=== PATIENT | female | born 1995 | race Caucasian/White ===

== ENCOUNTER 2020-09-23 06:28 | Day surgery (SDC) | payer OTHER ==
[2020-09-22 16:31] VITALS: BMI 18.5
[2020-09-23 09:20] VITALS: TEMP 98.6
[2020-09-23 10:18] VITALS: BP 114/74; PULSE 89
== END 2020-09-23 10:20 | disposition home or self-care (01) ==
LOC: FECT 06:28
PROVIDERS: ATTEND Psychiatry & Neurology Psychiatry
PROC: GZB4ZZZ Other Electroconvulsive Therapy (ICD-10-PCS; principal; 2020-09-23 08:00)
DX: F32.9 Major depressive disorder, single episode, unspecified (principal)
CPT/HCPCS: 81025; 90870; 94760; C9803; U0003

== ENCOUNTER 2020-09-26 08:07 | Day surgery (SDC) | payer OTHER ==
[2020-09-26 11:07] VITALS: TEMP 98.1
[2020-09-26 11:32] VITALS: BP 112/77; PULSE 89
== END 2020-09-26 11:45 | disposition home or self-care (01) ==
LOC: FECT 08:07
PROVIDERS: ATTEND Psychiatry & Neurology Psychiatry
PROC: GZB4ZZZ Other Electroconvulsive Therapy (ICD-10-PCS; principal; 2020-09-26 11:30)
DX: F32.9 Major depressive disorder, single episode, unspecified (principal)
CPT/HCPCS: 90870; 94760; C9803; U0003

== ENCOUNTER 2020-09-29 06:23 | Day surgery (SDC) | payer OTHER ==
[2020-09-23 10:51] VITALS: BMI 18.5
[2020-09-29 10:49] VITALS: TEMP 98.2
[2020-09-29 11:04] VITALS: BP 100/63; PULSE 87
== END 2020-09-29 11:00 | disposition home or self-care (01) ==
LOC: FECT 06:23
PROVIDERS: ATTEND Psychiatry & Neurology Psychiatry
PROC: GZB4ZZZ Other Electroconvulsive Therapy (ICD-10-PCS; principal; 2020-09-29 08:30)
DX: F32.9 Major depressive disorder, single episode, unspecified (principal)
CPT/HCPCS: 81025; 90870; 94760

== ENCOUNTER 2020-09-30 06:18 | Day surgery (SDC) | payer OTHER ==
[2020-09-30 07:11] VITALS: BMI 18.5
[2020-09-30] MEDS ORDERED: SUCCINYLCHOLINE CHLORIDE 200 MG/10 ML SYRINGE ONE (08:09)
[2020-09-30] MEDS ORDERED: ONDANSETRON 4 MG/2 ML VIAL ONE (08:09)
[2020-09-30] MEDS ORDERED: LIDOCAINE HCL/PF 2% SDV 5ML VIAL ONE (08:09)
[2020-09-30] MEDS ORDERED: PROPOFOL 20 ML ONE (08:09)
[2020-09-30 08:51] VITALS: TEMP 97.8
[2020-09-30 10:54] VITALS: BP 101/66
[2020-09-30 10:55] VITALS: PULSE 90
[2020-09-30] MEDS ORDERED: ONDANSETRON 4 MG/2 ML VIAL IVPUSH PRN (11:04)
== END 2020-09-30 09:40 | disposition home or self-care (01) ==
LOC: FECT 06:18
PROVIDERS: ATTEND Psychiatry & Neurology Psychiatry
PROC: GZB4ZZZ Other Electroconvulsive Therapy (ICD-10-PCS; principal; 2020-09-30 09:00)
DX: F32.9 Major depressive disorder, single episode, unspecified (principal)
CPT/HCPCS: 90870; 94760; C9803; U0003

== ENCOUNTER 2020-10-03 06:18 | Day surgery (SDC) | payer OTHER ==
[2020-09-30 10:55] VITALS: BMI 18.5
[2020-10-03] MEDS ORDERED: PROPOFOL 20 ML ONE (08:26)
[2020-10-03] MEDS ORDERED: SUCCINYLCHOLINE CHLORIDE 200 MG/10 ML SYRINGE ONE (08:27)
[2020-10-03 09:54] VITALS: TEMP 98.2
[2020-10-03 10:11] VITALS: BP 102/70; PULSE 86
== END 2020-10-03 09:45 | disposition home or self-care (01) ==
LOC: FECT 06:18
PROVIDERS: ATTEND Psychiatry & Neurology Psychiatry
PROC: GZB4ZZZ Other Electroconvulsive Therapy (ICD-10-PCS; principal; 2020-10-03 08:30)
DX: F32.9 Major depressive disorder, single episode, unspecified (principal)
CPT/HCPCS: 81025; 90870; 94760; C9803; U0003

== ENCOUNTER 2020-10-06 06:04 | Day surgery (SDC) | payer OTHER ==
[2020-10-04 16:49] VITALS: BMI 18.5
[2020-10-06] MEDS ORDERED: KETAMINE HCL 500 MG/10 ML VIAL ONE (07:51)
[2020-10-06 09:43] VITALS: TEMP 97.8
[2020-10-06] MEDS ORDERED: ACETAMINOPHEN 325 MG TABLET (FP) ONE (09:46)
[2020-10-06] MEDS ORDERED: ONDANSETRON *ODT* 4 MG TABLET ONE (10:25)
[2020-10-06 12:20] VITALS: BP 123/79; PULSE 88
== END 2020-10-06 11:15 | disposition home or self-care (01) ==
LOC: FECT 06:04
PROVIDERS: ATTEND Psychiatry & Neurology Psychiatry
PROC: GZB4ZZZ Other Electroconvulsive Therapy (ICD-10-PCS; principal; 2020-10-06 08:00)
DX: F32.9 Major depressive disorder, single episode, unspecified (principal)
CPT/HCPCS: 90870; 94760; Q0162

== ENCOUNTER 2020-10-10 08:37 | Day surgery (SDC) | payer OTHER ==
[2020-10-05 15:30] VITALS: BMI 18.5
[2020-10-10 11:45] VITALS: TEMP 98.2
[2020-10-10 12:33] VITALS: BP 121/69; PULSE 88
== END 2020-10-10 12:15 | disposition home or self-care (01) ==
LOC: FECT 08:37
PROVIDERS: ATTEND Psychiatry & Neurology Psychiatry
PROC: GZB4ZZZ Other Electroconvulsive Therapy (ICD-10-PCS; principal; 2020-10-10 10:30)
DX: F32.9 Major depressive disorder, single episode, unspecified (principal)
CPT/HCPCS: 84703; 90870; 94760; C9803; U0003

== ENCOUNTER → 2020-10-13 | Day surgery (SDC) | payer OTHER ==
[2020-10-11 08:17] VITALS: BMI 18.5
[~2020-10-13] MED LIST: KETAMINE HCL 500 MG/10 ML VIAL ONE; LIDOCAINE HCL 2% 100 MG/5 ML DISP.SYRIN ONE
[2020-10-13 08:40] VITALS: TEMP 98.6
[2020-10-13 09:19] VITALS: BP 107/70; PULSE 98
== END | disposition home or self-care (01) ==
LOC: FECT 05:54
PROVIDERS: ATTEND Psychiatry & Neurology Psychiatry
PROC: GZB4ZZZ Other Electroconvulsive Therapy (ICD-10-PCS; principal; 2020-10-13 07:30)
DX: F32.9 Major depressive disorder, single episode, unspecified (principal)
CPT/HCPCS: 90870; 94760

== ENCOUNTER 2020-10-14 05:49 | Day surgery (SDC) | payer OTHER ==
[2020-10-11 08:22] VITALS: BMI 18.5
[2020-10-14 08:29] VITALS: TEMP 98.2
[2020-10-14 08:45] VITALS: BP 108/70; PULSE 90
== END 2020-10-14 08:50 | disposition home or self-care (01) ==
LOC: FECT 05:49
PROVIDERS: ATTEND Psychiatry & Neurology Psychiatry
PROC: GZB4ZZZ Other Electroconvulsive Therapy (ICD-10-PCS; principal; 2020-10-14 07:30)
DX: F32.9 Major depressive disorder, single episode, unspecified (principal)
CPT/HCPCS: 81025; 90870; 94760; C9803; U0003

== ENCOUNTER 2020-10-17 05:40 | Day surgery (SDC) | payer OTHER ==
[2020-10-11 16:31] VITALS: BMI 18.5
[2020-10-17] MEDS ORDERED: LIDOCAINE HCL/PF 2% SDV 5ML VIAL ONE (07:18)
[2020-10-17] MEDS ORDERED: SUCCINYLCHOLINE CHLORIDE 200 MG/10 ML SYRINGE ONE (07:18)
[2020-10-17] MEDS ORDERED: PROPOFOL 20 ML ONE (07:18)
[2020-10-17] MEDS ORDERED: DEXAMETHASONE SOD PHOSPHATE 4 MG/1 ML VIAL ONE (07:20)
[2020-10-17] MEDS ORDERED: ONDANSETRON 4 MG/2 ML VIAL ONE (07:20)
[2020-10-17] MEDS ORDERED: KETOROLAC TROMETHAMINE 30 MG/1 ML VIAL ONE (07:20)
[2020-10-17 08:13] VITALS: TEMP 98
[2020-10-17 08:45] VITALS: BP 108/67; PULSE 79
[2020-10-17] MEDS ORDERED: ACETAMINOPHEN 325 MG TABLET (FP) PO PRN (10:15)
[2020-10-17] MEDS ORDERED: LACTATED RINGERS SOLUTION 1,000 ML IV SCH (10:15)
[2020-10-17] MEDS ORDERED: PROMETHAZINE HCL 25 MG/1 ML VIAL IVPUSH PRN (10:15)
== END 2020-10-17 08:47 | disposition home or self-care (01) ==
LOC: FECT 05:40
PROVIDERS: ATTEND Psychiatry & Neurology Psychiatry
PROC: GZB4ZZZ Other Electroconvulsive Therapy (ICD-10-PCS; principal; 2020-10-17 07:30)
DX: F32.9 Major depressive disorder, single episode, unspecified (principal)
CPT/HCPCS: 90870; 94760

== ENCOUNTER 2020-10-20 05:52 | Day surgery (SDC) | payer OTHER ==
[2020-10-13 09:28] VITALS: BMI 18.5
[2020-10-20 07:07] VITALS: TEMP 98.4
[2020-10-20] MEDS ORDERED: SUCCINYLCHOLINE CHLORIDE 200 MG/10 ML SYRINGE ONE (08:11)
[2020-10-20 09:21] VITALS: BP 109/69; PULSE 94
== END 2020-10-20 09:25 | disposition home or self-care (01) ==
LOC: FECT 05:52
PROVIDERS: ATTEND Psychiatry & Neurology Psychiatry
PROC: GZB4ZZZ Other Electroconvulsive Therapy (ICD-10-PCS; principal; 2020-10-20 08:00)
DX: F32.9 Major depressive disorder, single episode, unspecified (principal)
CPT/HCPCS: 81025; 90870; 94760

== ENCOUNTER 2020-10-21 06:05 | Day surgery (SDC) | payer OTHER ==
[2020-10-13 12:34] VITALS: BMI 18.5
[2020-10-21] MEDS ORDERED: DEXAMETHASONE SOD PHOSPHATE 4 MG/1 ML VIAL ONE (07:35)
[2020-10-21 08:45] VITALS: PULSE 89; TEMP 98.1
[2020-10-21 08:46] VITALS: BP 110/77
== END 2020-10-21 08:55 | disposition home or self-care (01) ==
LOC: FECT 06:05
PROVIDERS: ATTEND Psychiatry & Neurology Psychiatry
PROC: GZB4ZZZ Other Electroconvulsive Therapy (ICD-10-PCS; principal; 2020-10-21 08:00)
DX: F32.9 Major depressive disorder, single episode, unspecified (principal)
CPT/HCPCS: 90870; 94760

== ENCOUNTER 2020-10-24 05:59 | Day surgery (SDC) | payer OTHER ==
[2020-10-24 07:23] VITALS: BMI 18.5
[2020-10-24 09:37] VITALS: TEMP 98.4
[2020-10-24 11:29] VITALS: BP 122/79; PULSE 105
== END 2020-10-24 10:50 | disposition home or self-care (01) ==
LOC: FECT 05:59
PROVIDERS: ATTEND Psychiatry & Neurology Psychiatry
PROC: GZB4ZZZ Other Electroconvulsive Therapy (ICD-10-PCS; principal; 2020-10-24 07:30)
DX: F32.9 Major depressive disorder, single episode, unspecified (principal)
CPT/HCPCS: 81025; 90870; 94760

== ENCOUNTER 2020-10-31 06:48 | Day surgery (SDC) | payer OTHER ==
[2020-10-31 07:29] VITALS: TEMP 98; BMI 18.5
[2020-10-31] MEDS ORDERED: DEXAMETHASONE SOD PHOSPHATE 4 MG/1 ML VIAL ONE (08:35)
[2020-10-31] MEDS ORDERED: PROPOFOL 20 ML ONE (08:35)
[2020-10-31] MEDS ORDERED: ONDANSETRON 4 MG/2 ML VIAL ONE (08:35)
[2020-10-31] MEDS ORDERED: SUCCINYLCHOLINE CHLORIDE 200 MG/10 ML SYRINGE ONE (08:35)
[2020-10-31] MEDS ORDERED: KETOROLAC TROMETHAMINE 30 MG/1 ML VIAL ONE (08:35)
[2020-10-31] MEDS ORDERED: ONDANSETRON 4 MG/2 ML VIAL IVPUSH PRN (08:48)
[2020-10-31] MEDS ORDERED: LACTATED RINGERS SOLUTION 1,000 ML IV SCH (09:00)
[2020-10-31 10:19] VITALS: BP 115/75; PULSE 96
== END 2020-10-31 10:10 | disposition home or self-care (01) ==
LOC: FECT 06:48
PROVIDERS: ATTEND Psychiatry & Neurology Psychiatry
PROC: GZB4ZZZ Other Electroconvulsive Therapy (ICD-10-PCS; principal; 2020-10-31 09:00)
DX: F32.9 Major depressive disorder, single episode, unspecified (principal)
CPT/HCPCS: 81025; 90870; 94760

== ENCOUNTER 2020-11-07 05:43 | Day surgery (SDC) | payer OTHER ==
[2020-11-02 13:59] VITALS: BMI 18.5
[2020-11-07] MEDS ORDERED: PROPOFOL 20 ML ONE (07:17)
[2020-11-07] MEDS ORDERED: SUCCINYLCHOLINE CHLORIDE 200 MG/10 ML SYRINGE ONE (07:17)
[2020-11-07 07:46] VITALS: TEMP 98.9
[2020-11-07 08:50] VITALS: BP 100/61; PULSE 87
== END 2020-11-07 08:35 | disposition home or self-care (01) ==
LOC: FECT 05:43
PROVIDERS: ATTEND Psychiatry & Neurology Psychiatry
PROC: GZB4ZZZ Other Electroconvulsive Therapy (ICD-10-PCS; principal; 2020-11-07 07:30)
DX: F32.9 Major depressive disorder, single episode, unspecified (principal)
CPT/HCPCS: 81025; 90870; 94760

== ENCOUNTER 2020-11-14 06:45 | Day surgery (SDC) | payer OTHER ==
[2020-11-14 07:33] VITALS: BMI 19.7
[2020-11-14 09:14] VITALS: TEMP 98.2
[2020-11-14 09:57] VITALS: BP 107/61; PULSE 89
== END 2020-11-14 10:00 | disposition home or self-care (01) ==
LOC: FECT 06:45
PROVIDERS: ATTEND Psychiatry & Neurology Psychiatry
PROC: GZB4ZZZ Other Electroconvulsive Therapy (ICD-10-PCS; principal; 2020-11-14 09:30)
DX: F32.9 Major depressive disorder, single episode, unspecified (principal)
CPT/HCPCS: 81025; 90870; 94760

== ENCOUNTER 2020-11-21 08:04 | Day surgery (SDC) | payer OTHER ==
[2020-11-21 09:10] VITALS: BMI 19.9
[2020-11-21] MEDS ORDERED: ONDANSETRON 4 MG/2 ML VIAL ONE (09:51)
[2020-11-21] MEDS ORDERED: KETOROLAC TROMETHAMINE 30 MG/1 ML VIAL ONE (09:51)
[2020-11-21 10:58] VITALS: TEMP 98.2
[2020-11-21 11:07] VITALS: BP 105/66; PULSE 88
== END 2020-11-21 11:15 | disposition home or self-care (01) ==
LOC: FECT 08:04
PROVIDERS: ATTEND Psychiatry & Neurology Psychiatry
PROC: GZB4ZZZ Other Electroconvulsive Therapy (ICD-10-PCS; principal; 2020-11-21 10:30)
DX: F32.9 Major depressive disorder, single episode, unspecified (principal)
CPT/HCPCS: 84703; 90870; 94760

== ENCOUNTER 2020-12-01 05:55 | Day surgery (SDC) | payer OTHER ==
[2020-12-01 07:02] VITALS: BMI 19.9
[2020-12-01 08:33] VITALS: TEMP 98
[2020-12-01 09:13] VITALS: BP 108/66; PULSE 96
[2020-12-02 07:07] LABS: SARS-CoV-2 NAA Not Detected (Not Detected)
== END 2020-12-01 09:30 | disposition home or self-care (01) ==
LOC: FECT 05:55
PROVIDERS: ATTEND Psychiatry & Neurology Psychiatry
PROC: GZB4ZZZ Other Electroconvulsive Therapy (ICD-10-PCS; principal; 2020-12-01 08:30)
DX: F32.9 Major depressive disorder, single episode, unspecified (principal)
CPT/HCPCS: 81025; 90870; 94760; C9803; U0003; U0005

== ENCOUNTER 2020-12-05 06:11 | Day surgery (SDC) | payer OTHER ==
[2020-12-01 12:48] VITALS: BMI 19.9
[2020-12-05 09:51] VITALS: TEMP 97.6
[2020-12-05 10:07] VITALS: BP 100/61; PULSE 81
[2020-12-06 07:07] LABS: SARS-CoV-2 NAA Not Detected (Not Detected)
== END 2020-12-05 10:10 | disposition home or self-care (01) ==
LOC: FECT 06:11
PROVIDERS: ATTEND Psychiatry & Neurology Psychiatry
PROC: GZB4ZZZ Other Electroconvulsive Therapy (ICD-10-PCS; principal; 2020-12-05 10:30)
DX: F32.9 Major depressive disorder, single episode, unspecified (principal)
CPT/HCPCS: 81025; 90870; 94760; C9803; U0003; U0005

== ENCOUNTER 2020-12-08 06:10 | Day surgery (SDC) | payer OTHER ==
[2020-12-01 12:52] VITALS: BMI 19.9
[2020-12-08] MEDS ORDERED: KETOROLAC TROMETHAMINE 30 MG/1 ML VIAL ONE (07:56)
[2020-12-08 08:32] VITALS: TEMP 98.7
[2020-12-08 09:16] VITALS: BP 114/74; PULSE 89
== END 2020-12-08 09:15 | disposition home or self-care (01) ==
LOC: FECT 06:10
PROVIDERS: ATTEND Psychiatry & Neurology Psychiatry
PROC: GZB4ZZZ Other Electroconvulsive Therapy (ICD-10-PCS; principal; 2020-12-08 07:45)
DX: F32.9 Major depressive disorder, single episode, unspecified (principal)
CPT/HCPCS: 90870; 94760

== ENCOUNTER 2020-12-22 08:38 | Day surgery (SDC) | payer OTHER ==
[2020-12-22 09:23] VITALS: BMI 19.9
[2020-12-22] MEDS ORDERED: SUCCINYLCHOLINE CHLORIDE 200 MG/10 ML SYRINGE ONE (11:22)
[2020-12-22] MEDS ORDERED: PROPOFOL 20 ML ONE (11:22)
[2020-12-22 13:01] VITALS: TEMP 98.4
[2020-12-22 13:02] VITALS: BP 119/65; PULSE 83
[2020-12-23 11:08] LABS: SARS-CoV-2 NAA Not Detected (Not Detected)
== END 2020-12-22 13:00 | disposition home or self-care (01) ==
LOC: FECT 08:38
PROVIDERS: ATTEND Psychiatry & Neurology Psychiatry
PROC: GZB4ZZZ Other Electroconvulsive Therapy (ICD-10-PCS; principal; 2020-12-22 09:30)
DX: F33.2 Major depressive disorder, recurrent severe without psychotic features (principal)
CPT/HCPCS: 81025; 90870; 94760; C9803; U0003; U0005

== ENCOUNTER 2020-12-26 05:56 | Day surgery (SDC) | payer OTHER ==
[2020-12-26 06:55] VITALS: BMI 19.9
[2020-12-26 08:47] VITALS: PULSE 89; TEMP 98.2
[2020-12-26 09:29] VITALS: BP 112/69
[2020-12-27 12:07] LABS: SARS-CoV-2 NAA Not Detected (Not Detected)
== END 2020-12-26 09:05 | disposition home or self-care (01) ==
LOC: FECT 05:56
PROVIDERS: ATTEND Psychiatry & Neurology Psychiatry
PROC: GZB4ZZZ Other Electroconvulsive Therapy (ICD-10-PCS; principal; 2020-12-26 07:00)
DX: F32.9 Major depressive disorder, single episode, unspecified (principal)
CPT/HCPCS: 81025; 90870; 94760; C9803; U0003; U0005

== ENCOUNTER 2020-12-29 08:05 | Day surgery (SDC) | payer OTHER ==
[2020-12-29 08:25] VITALS: BMI 21.2
[2020-12-29] MEDS ORDERED: PROPOFOL 20 ML ONE (09:32)
[2020-12-29] MEDS ORDERED: DEXAMETHASONE SOD PHOSPHATE 4 MG/1 ML VIAL ONE (09:33)
[2020-12-29] MEDS ORDERED: KETOROLAC TROMETHAMINE 30 MG/1 ML VIAL ONE (09:33)
[2020-12-29] MEDS ORDERED: ONDANSETRON 4 MG/2 ML VIAL ONE (09:33)
[2020-12-29] MEDS ORDERED: SUCCINYLCHOLINE CHLORIDE 200 MG/10 ML SYRINGE ONE (09:33)
[2020-12-29 11:12] VITALS: BP 110/65; PULSE 88; TEMP 98
[2020-12-29] MEDS ORDERED: ONDANSETRON 4 MG/2 ML VIAL IVPUSH PRN (11:57)
[2020-12-29] MEDS ORDERED: LACTATED RINGERS SOLUTION 1,000 ML IV SCH (12:00)
[2020-12-30 15:08] LABS: SARS-CoV-2 NAA Not Detected (Not Detected)
== END 2020-12-29 10:55 | disposition home or self-care (01) ==
LOC: FECT 08:05
PROVIDERS: ATTEND Psychiatry & Neurology Psychiatry
PROC: GZB4ZZZ Other Electroconvulsive Therapy (ICD-10-PCS; principal; 2020-12-29 10:00)
DX: F32.9 Major depressive disorder, single episode, unspecified (principal)
CPT/HCPCS: 90870; 94760; C9803; U0003; U0005

== ENCOUNTER 2021-01-02 09:40 | Day surgery (SDC) | payer OTHER ==
[2020-12-30 15:02] VITALS: BMI 21.2
[2021-01-02] MEDS ORDERED: PROPOFOL 20 ML ONE (12:51)
[2021-01-02] MEDS ORDERED: ONDANSETRON 4 MG/2 ML VIAL ONE (12:51)
[2021-01-02] MEDS ORDERED: SUCCINYLCHOLINE CHLORIDE 200 MG/10 ML SYRINGE ONE (12:51)
[2021-01-02] MEDS ORDERED: KETOROLAC TROMETHAMINE 30 MG/1 ML VIAL ONE (12:51)
[2021-01-02] MEDS ORDERED: DEXAMETHASONE SOD PHOSPHATE 4 MG/1 ML VIAL ONE (12:51)
[2021-01-02 13:46] VITALS: PULSE 72; TEMP 97.9
[2021-01-02 14:09] VITALS: BP 102/64
== END 2021-01-02 14:13 | disposition home or self-care (01) ==
LOC: FECT 09:40
PROVIDERS: ATTEND Psychiatry & Neurology Psychiatry
PROC: GZB4ZZZ Other Electroconvulsive Therapy (ICD-10-PCS; principal; 2021-01-02 12:30)
DX: F32.9 Major depressive disorder, single episode, unspecified (principal)
CPT/HCPCS: 84703; 90870; 94760

== ENCOUNTER 2021-01-05 06:04 | Day surgery (SDC) | payer OTHER ==
[2021-01-02 17:29] VITALS: BMI 21.2
[2021-01-05 08:25] VITALS: TEMP 98.6
[2021-01-05 09:16] VITALS: BP 125/71; PULSE 89
== END 2021-01-05 09:10 | disposition home or self-care (01) ==
LOC: FECT 06:04
PROVIDERS: ATTEND Psychiatry & Neurology Psychiatry
PROC: GZB4ZZZ Other Electroconvulsive Therapy (ICD-10-PCS; principal; 2021-01-05 08:00)
DX: F33.2 Major depressive disorder, recurrent severe without psychotic features (principal)
CPT/HCPCS: 90870; 94760

== ENCOUNTER 2021-01-09 08:53 | Day surgery (SDC) | payer OTHER ==
[2021-01-06 10:14] VITALS: BMI 21.2
[2021-01-09 09:11] VITALS: TEMP 98
[2021-01-09] MEDS ORDERED: PROPOFOL 20 ML ONE ×5 (11:09)
[2021-01-09 12:19] VITALS: BP 121/71; PULSE 99
== END 2021-01-09 12:15 | disposition home or self-care (01) ==
LOC: FECT 08:53
PROVIDERS: ATTEND Psychiatry & Neurology Psychiatry
PROC: GZB4ZZZ Other Electroconvulsive Therapy (ICD-10-PCS; principal; 2021-01-09 11:00)
DX: F33.2 Major depressive disorder, recurrent severe without psychotic features (principal)
CPT/HCPCS: 84703; 90870; 94760

== ENCOUNTER 2021-01-12 05:56 | Day surgery (SDC) | payer OTHER ==
[2021-01-11 10:37] VITALS: BMI 21.2
[2021-01-12] MEDS ORDERED: SUCCINYLCHOLINE CHLORIDE 200 MG/10 ML SYRINGE ONE (07:21)
[2021-01-12] MEDS ORDERED: PROPOFOL 20 ML ONE (07:21)
[2021-01-12] MEDS ORDERED: LACTATED RINGERS SOLUTION 1,000 ML IV SCH (07:45)
[2021-01-12 08:52] VITALS: BP 112/70; PULSE 85; TEMP 98.2
== END 2021-01-12 08:40 | disposition home or self-care (01) ==
LOC: FECT 05:56
PROVIDERS: ATTEND Psychiatry & Neurology Psychiatry
PROC: GZB4ZZZ Other Electroconvulsive Therapy (ICD-10-PCS; principal; 2021-01-12 08:00)
DX: F33.2 Major depressive disorder, recurrent severe without psychotic features (principal)
CPT/HCPCS: 90870; 94760

== ENCOUNTER 2021-01-16 06:03 | Day surgery (SDC) | payer OTHER ==
[2021-01-11 15:02] VITALS: BMI 21.2
[2021-01-16 08:39] VITALS: TEMP 98.2
[2021-01-16 08:55] VITALS: BP 116/82; PULSE 90
== END 2021-01-16 09:00 | disposition home or self-care (01) ==
LOC: FECT 06:03
PROVIDERS: ATTEND Psychiatry & Neurology Psychiatry
PROC: GZB4ZZZ Other Electroconvulsive Therapy (ICD-10-PCS; principal; 2021-01-16 07:30)
DX: F33.2 Major depressive disorder, recurrent severe without psychotic features (principal)
CPT/HCPCS: 81025; 90870; 94760

== ENCOUNTER 2021-01-24 07:47 | Day surgery (SDC) | payer OTHER ==
[2021-01-24 09:08] VITALS: BMI 21.2
[2021-01-24 11:07] VITALS: TEMP 98.2
[2021-01-24 11:11] VITALS: BP 111/77; PULSE 89
== END 2021-01-24 11:05 | disposition home or self-care (01) ==
LOC: FECT 07:47
PROVIDERS: ATTEND Psychiatry & Neurology Psychiatry
PROC: GZB4ZZZ Other Electroconvulsive Therapy (ICD-10-PCS; principal; 2021-01-24 09:30)
DX: F32.9 Major depressive disorder, single episode, unspecified (principal)
CPT/HCPCS: 84703; 90870; 94760

== ENCOUNTER 2021-02-02 05:53 | Day surgery (SDC) | payer OTHER ==
[2021-01-26 11:17] VITALS: BMI 21.2
[2021-02-02] MEDS ORDERED: PROPOFOL 20 ML ONE (07:45)
[2021-02-02 09:01] VITALS: TEMP 98.4
[2021-02-02 09:26] VITALS: BP 112/70; PULSE 84
== END 2021-02-02 09:25 | disposition home or self-care (01) ==
LOC: FECT 05:53
PROVIDERS: ATTEND Psychiatry & Neurology Psychiatry
PROC: GZB4ZZZ Other Electroconvulsive Therapy (ICD-10-PCS; principal; 2021-02-02 08:00)
DX: F32.9 Major depressive disorder, single episode, unspecified (principal)
CPT/HCPCS: 81025; 90870; 94760

== ENCOUNTER 2021-02-06 06:07 | Day surgery (SDC) | payer OTHER ==
[2021-02-03 09:02] VITALS: BMI 21.2
[2021-02-06 09:19] VITALS: TEMP 98.4
[2021-02-06 09:39] VITALS: BP 112/71; PULSE 89
== END 2021-02-06 09:40 | disposition home or self-care (01) ==
LOC: FECT 06:07
PROVIDERS: ATTEND Psychiatry & Neurology Psychiatry
PROC: GZB4ZZZ Other Electroconvulsive Therapy (ICD-10-PCS; principal; 2021-02-06 08:30)
DX: F32.9 Major depressive disorder, single episode, unspecified (principal)
CPT/HCPCS: 81025; 90870; 94760

== ENCOUNTER 2021-02-09 06:07 | Day surgery (SDC) | payer OTHER ==
[2021-02-03 11:27] VITALS: BMI 21.2
[2021-02-09 08:20] VITALS: TEMP 97
[2021-02-09 08:34] VITALS: PULSE 94
[2021-02-09 09:01] VITALS: BP 105/75
[2021-02-09 09:26] LABS: BASO % 1.8 % (0-2.0); EOS % 1.2 % (0-4.5); HEMATOCRIT 37.4 % (32.4-45.2); MCHC 34.7 g/dl (32.0-36.0); MEAN CELL VOLUME 86.3 fl (80-96); MEAN PLT VOLUME 9.7 fl (7.5-11.1); MONO % 6.1 % (3.8-10.2); NEUT % 70.9 % (42.8-82.8); PLATELET COUNT 181 10^3/uL (134-434); RBC 4.33 M/mm3 (3.60-5.2); WHITE BLOOD COUNT 4.9 K/mm3 (4.0-10.8)
[2021-02-09 09:42] LABS: ALBUMIN 3.8 g/dl (3.4-5.0); BILIRUBIN,TOTAL 0.6 mg/dl (0.2-1); CALCIUM 8.9 mg/dl (8.5-10); CREATININE 0.5 mg/dl (0.55-1.3); MAGNESIUM 1.7 mg/dL (1.8-2.4); TOT PROT 6.4 g/dl (6.4-8.2)
== END 2021-02-09 09:10 | disposition home or self-care (01) ==
LOC: FECT 06:07
PROVIDERS: ATTEND Psychiatry & Neurology Psychiatry
PROC: GZB4ZZZ Other Electroconvulsive Therapy (ICD-10-PCS; principal; 2021-02-09 08:00)
DX: F32.9 Major depressive disorder, single episode, unspecified (principal)
CPT/HCPCS: 36415; 80053; 83735; 85025; 90870; 94760

== ENCOUNTER 2021-02-13 08:04 | Day surgery (SDC) | payer OTHER ==
[2021-02-07 08:33] VITALS: BMI 21.2
[2021-02-13 13:28] VITALS: TEMP 98.6
[2021-02-13 13:50] VITALS: BP 121/70; PULSE 90
== END 2021-02-13 13:50 | disposition home or self-care (01) ==
LOC: FECT 08:04
PROVIDERS: ATTEND Psychiatry & Neurology Psychiatry
PROC: GZB4ZZZ Other Electroconvulsive Therapy (ICD-10-PCS; principal; 2021-02-13 10:30)
DX: F32.9 Major depressive disorder, single episode, unspecified (principal)
CPT/HCPCS: 84703; 90870; 94760

== ENCOUNTER 2021-02-16 06:15 | Day surgery (SDC) | payer OTHER ==
[2021-02-07 08:37] VITALS: BMI 21.2
[2021-02-16 08:29] VITALS: TEMP 98.6
[2021-02-16 09:16] VITALS: BP 112/80; PULSE 94
[2021-02-16] MEDS ORDERED: ACETAMINOPHEN 325 MG TABLET (FP) PO PRN (11:24)
[2021-02-16] MEDS ORDERED: LACTATED RINGERS SOLUTION 1,000 ML IV SCH (11:30)
== END 2021-02-16 09:15 | disposition home or self-care (01) ==
LOC: FECT 06:15
PROVIDERS: ATTEND Psychiatry & Neurology Psychiatry
PROC: GZB4ZZZ Other Electroconvulsive Therapy (ICD-10-PCS; principal; 2021-02-16 08:00)
DX: F32.9 Major depressive disorder, single episode, unspecified (principal)
CPT/HCPCS: 90870; 94760

== ENCOUNTER 2021-02-20 05:51 | Day surgery (SDC) | payer OTHER ==
[2021-02-17 10:01] VITALS: BMI 21.2
[2021-02-20 08:33] VITALS: TEMP 98.6
[2021-02-20 08:59] VITALS: BP 106/66; PULSE 92
== END 2021-02-20 09:00 | disposition home or self-care (01) ==
LOC: FECT 05:51
PROVIDERS: ATTEND Psychiatry & Neurology Psychiatry
PROC: GZB4ZZZ Other Electroconvulsive Therapy (ICD-10-PCS; principal; 2021-02-20 08:00)
DX: F32.9 Major depressive disorder, single episode, unspecified (principal)
CPT/HCPCS: 81025; 90870; 94760

== ENCOUNTER 2021-02-23 06:00 | Day surgery (SDC) | payer OTHER ==
[2021-02-23 07:03] VITALS: BMI 21.2
[2021-02-23 08:31] VITALS: TEMP 97.8
[2021-02-23 09:39] VITALS: BP 121/71; PULSE 96
== END 2021-02-23 09:20 | disposition home or self-care (01) ==
LOC: FECT 06:00
PROVIDERS: ATTEND Psychiatry & Neurology Psychiatry
PROC: GZB4ZZZ Other Electroconvulsive Therapy (ICD-10-PCS; principal; 2021-02-23 08:00)
DX: F32.9 Major depressive disorder, single episode, unspecified (principal)
CPT/HCPCS: 90870; 94760

== ENCOUNTER 2021-03-02 06:04 | Day surgery (SDC) | payer OTHER ==
[2021-03-02 07:26] VITALS: BMI 21.2
[2021-03-02 08:58] VITALS: TEMP 98
[2021-03-02 09:31] VITALS: PULSE 93
[2021-03-02 09:41] VITALS: BP 114/70
== END 2021-03-02 09:45 | disposition home or self-care (01) ==
LOC: FECT 06:04
PROVIDERS: ATTEND Psychiatry & Neurology Psychiatry
PROC: GZB4ZZZ Other Electroconvulsive Therapy (ICD-10-PCS; principal; 2021-03-02 08:30)
DX: F32.9 Major depressive disorder, single episode, unspecified (principal)
CPT/HCPCS: 81025; 90870; 94760

== ENCOUNTER 2021-03-06 06:42 | Day surgery (SDC) | payer OTHER ==
[2021-02-21 07:34] VITALS: BMI 21.2
[2021-03-06] MEDS ORDERED: SUCCINYLCHOLINE CHLORIDE 200 MG/10 ML SYRINGE ONE (07:59)
[2021-03-06] MEDS ORDERED: PROPOFOL 20 ML ONE (07:59)
[2021-03-06 08:58] VITALS: PULSE 90
[2021-03-06 09:05] VITALS: BP 119/79; TEMP 98.6
== END 2021-03-06 09:20 | disposition home or self-care (01) ==
LOC: FECT 06:42
PROVIDERS: ATTEND Psychiatry & Neurology Psychiatry
PROC: GZB4ZZZ Other Electroconvulsive Therapy (ICD-10-PCS; principal; 2021-03-06 09:00)
DX: F32.9 Major depressive disorder, single episode, unspecified (principal)
CPT/HCPCS: 81025; 90870; 94760

== ENCOUNTER 2021-03-09 09:06 | Day surgery (SDC) | payer OTHER ==
[2021-03-09 10:03] VITALS: BMI 21.2
[2021-03-09 12:11] VITALS: TEMP 97.8
[2021-03-09 12:34] VITALS: BP 112/72; PULSE 86
[2021-03-10 16:08] LABS: SARS-CoV-2 NAA Not Detected (Not Detected)
== END 2021-03-09 12:36 | disposition home or self-care (01) ==
LOC: FECT 09:06
PROVIDERS: ATTEND Psychiatry & Neurology Psychiatry
PROC: GZB4ZZZ Other Electroconvulsive Therapy (ICD-10-PCS; principal; 2021-03-09 11:00)
DX: F32.9 Major depressive disorder, single episode, unspecified (principal)
CPT/HCPCS: 90870; 94760; C9803; U0003; U0005

== ENCOUNTER 2021-03-13 05:52 | Day surgery (SDC) | payer OTHER ==
[2021-03-09 17:24] VITALS: BMI 21.2
[2021-03-13 10:47] VITALS: BP 106/56; PULSE 70; TEMP 98
== END 2021-03-13 10:47 | disposition home or self-care (01) ==
LOC: FECT 05:52
PROVIDERS: ATTEND Psychiatry & Neurology Psychiatry
PROC: GZB4ZZZ Other Electroconvulsive Therapy (ICD-10-PCS; principal; 2021-03-13 08:00)
DX: F32.9 Major depressive disorder, single episode, unspecified (principal)
CPT/HCPCS: 84703; 90870; 94760; C9803; U0003; U0005

== ENCOUNTER 2021-03-16 06:48 | Day surgery (SDC) | payer OTHER ==
[2021-03-10 17:21] VITALS: BMI 21.2
[2021-03-16 07:21] VITALS: TEMP 97.8
[2021-03-16 10:48] VITALS: BP 105/65; PULSE 91
== END 2021-03-16 10:51 | disposition home or self-care (01) ==
LOC: FECT 06:48
PROVIDERS: ATTEND Psychiatry & Neurology Psychiatry
PROC: GZB4ZZZ Other Electroconvulsive Therapy (ICD-10-PCS; principal; 2021-03-16 09:00)
DX: F32.9 Major depressive disorder, single episode, unspecified (principal)
CPT/HCPCS: 90870; 94760; C9803; U0003; U0005

== ENCOUNTER 2021-03-20 06:02 | Day surgery (SDC) | payer OTHER ==
[2021-03-14 13:45] VITALS: BMI 21.2
[2021-03-20] MEDS ORDERED: SUCCINYLCHOLINE CHLORIDE 200 MG/10 ML SYRINGE ONE (08:31)
[2021-03-20 09:32] VITALS: TEMP 98.2
[2021-03-20 09:53] VITALS: BP 112/68; PULSE 92
== END 2021-03-20 09:55 | disposition home or self-care (01) ==
LOC: FECT 06:02
PROVIDERS: ATTEND Psychiatry & Neurology Psychiatry
PROC: GZB4ZZZ Other Electroconvulsive Therapy (ICD-10-PCS; principal; 2021-03-20 10:30)
DX: F33.2 Major depressive disorder, recurrent severe without psychotic features (principal)
CPT/HCPCS: 81025; 90870; 94760; C9803; U0003; U0005

== ENCOUNTER 2021-03-23 05:57 | Day surgery (SDC) | payer OTHER ==
[2021-03-21 07:27] VITALS: BMI 21.2
[2021-03-23 09:13] VITALS: TEMP 97.8
[2021-03-23 09:43] VITALS: BP 110/61; PULSE 89
== END 2021-03-23 09:40 | disposition home or self-care (01) ==
LOC: FECT 05:57
PROVIDERS: ATTEND Psychiatry & Neurology Psychiatry
PROC: GZB4ZZZ Other Electroconvulsive Therapy (ICD-10-PCS; principal; 2021-03-23 08:30)
DX: F32.9 Major depressive disorder, single episode, unspecified (principal)
CPT/HCPCS: 90870; 93005; 94760; C9803; U0003; U0005

== ENCOUNTER 2021-03-28 06:05 | Day surgery (SDC) | payer OTHER ==
[2021-03-21 07:30] VITALS: BMI 21.2
[2021-03-28 08:58] VITALS: TEMP 98
[2021-03-28 09:01] VITALS: BP 116/72; PULSE 92
== END 2021-03-28 09:02 | disposition home or self-care (01) ==
LOC: FECT 06:05
PROVIDERS: ATTEND Psychiatry & Neurology Psychiatry
PROC: GZB4ZZZ Other Electroconvulsive Therapy (ICD-10-PCS; principal; 2021-03-28 10:30)
DX: F32.9 Major depressive disorder, single episode, unspecified (principal)
CPT/HCPCS: 81025; 90870; 94760; C9803; U0003; U0005

== ENCOUNTER 2021-03-30 07:43 | Day surgery (SDC) | payer OTHER ==
[2021-03-30 08:10] VITALS: TEMP 98.2; BMI 21.2
[2021-03-30 12:08] VITALS: BP 112/77; PULSE 89
== END 2021-03-30 12:45 | disposition home or self-care (01) ==
LOC: FECT 07:43
PROVIDERS: ATTEND Psychiatry & Neurology Psychiatry
PROC: GZB4ZZZ Other Electroconvulsive Therapy (ICD-10-PCS; principal; 2021-03-30 10:00)
DX: F32.9 Major depressive disorder, single episode, unspecified (principal)
CPT/HCPCS: 90870; 94760; C9803; U0003; U0005

== ENCOUNTER 2021-04-03 05:52 | Day surgery (SDC) | payer OTHER ==
[2021-04-03 06:38] VITALS: BMI 21.2
[2021-04-03] MEDS ORDERED: PROPOFOL 20 ML ONE (08:06)
[2021-04-03] MEDS ORDERED: SUCCINYLCHOLINE CHLORIDE 200 MG/10 ML SYRINGE ONE (08:06)
[2021-04-03] MEDS ORDERED: KETOROLAC TROMETHAMINE 30 MG/1 ML VIAL ONE (08:08)
[2021-04-03] MEDS ORDERED: ONDANSETRON 4 MG/2 ML VIAL ONE (08:08)
[2021-04-03] MEDS ORDERED: PROMETHAZINE HCL 25 MG/1 ML VIAL IVPUSH PRN (09:11)
[2021-04-03] MEDS ORDERED: LACTATED RINGERS SOLUTION 1,000 ML IV SCH (09:15)
[2021-04-03 09:24] VITALS: TEMP 97.6
[2021-04-03 09:35] VITALS: BP 122/76; PULSE 72
== END 2021-04-03 09:38 | disposition home or self-care (01) ==
LOC: FECT 05:52
PROVIDERS: ATTEND Psychiatry & Neurology Psychiatry
PROC: GZB4ZZZ Other Electroconvulsive Therapy (ICD-10-PCS; principal; 2021-04-03 08:00)
DX: F32.9 Major depressive disorder, single episode, unspecified (principal)
CPT/HCPCS: 81025; 90870; 94760; C9803; U0003; U0005

== ENCOUNTER 2021-04-06 06:05 | Day surgery (SDC) | payer OTHER ==
[2021-04-06 06:39] VITALS: BMI 21.2
[2021-04-06] MEDS ORDERED: LIDOCAINE HCL/PF 2% SDV 5ML VIAL ONE (07:27)
[2021-04-06 08:23] VITALS: PULSE 96; TEMP 97.8
[2021-04-06 08:57] VITALS: BP 112/71
== END 2021-04-06 08:40 | disposition home or self-care (01) ==
LOC: FECT 06:05
PROVIDERS: ATTEND Psychiatry & Neurology Psychiatry
PROC: GZB4ZZZ Other Electroconvulsive Therapy (ICD-10-PCS; principal; 2021-04-06 07:30)
DX: F32.9 Major depressive disorder, single episode, unspecified (principal)
CPT/HCPCS: 90870; 94760; C9803; U0003; U0005

== ENCOUNTER 2021-04-10 06:43 | Day surgery (SDC) | payer OTHER ==
[2021-04-04 17:04] VITALS: BMI 19.3
[2021-04-10] MEDS ORDERED: PROPOFOL 20 ML ONE (08:30)
[2021-04-10] MEDS ORDERED: SUCCINYLCHOLINE CHLORIDE 200 MG/10 ML SYRINGE ONE (08:31)
[2021-04-10 09:23] VITALS: TEMP 98.4
[2021-04-10 10:15] VITALS: BP 108/76; PULSE 92
== END 2021-04-10 10:16 | disposition home or self-care (01) ==
LOC: FECT 06:43
PROVIDERS: ATTEND Psychiatry & Neurology Psychiatry
PROC: GZB4ZZZ Other Electroconvulsive Therapy (ICD-10-PCS; principal; 2021-04-10 09:30)
DX: F32.9 Major depressive disorder, single episode, unspecified (principal)
CPT/HCPCS: 84703; 90870; 94760; C9803; U0003; U0005

== ENCOUNTER 2021-04-13 06:02 | Day surgery (SDC) | payer OTHER ==
[2021-04-10 10:28] VITALS: BMI 19.3
[2021-04-13 09:07] VITALS: TEMP 97.9
[2021-04-13 09:25] VITALS: BP 112/62; PULSE 91
== END 2021-04-13 09:26 | disposition home or self-care (01) ==
LOC: FECT 06:02
PROVIDERS: ATTEND Psychiatry & Neurology Psychiatry
PROC: GZB4ZZZ Other Electroconvulsive Therapy (ICD-10-PCS; principal; 2021-04-13 08:00)
DX: F32.9 Major depressive disorder, single episode, unspecified (principal)
CPT/HCPCS: 90870; 94760; C9803; U0003; U0005

== ENCOUNTER 2021-04-17 05:55 | Day surgery (SDC) | payer OTHER ==
[2021-04-06 14:18] VITALS: BMI 21.2
[2021-04-17 08:42] VITALS: TEMP 98.1
[2021-04-17 09:01] VITALS: BP 112/62; PULSE 89
== END 2021-04-17 09:09 | disposition home or self-care (01) ==
LOC: FECT 05:55
PROVIDERS: ATTEND Psychiatry & Neurology Psychiatry
PROC: GZB4ZZZ Other Electroconvulsive Therapy (ICD-10-PCS; principal; 2021-04-17 08:00)
DX: F32.9 Major depressive disorder, single episode, unspecified (principal)
CPT/HCPCS: 81025; 90870; 94760; C9803; U0003; U0005

== ENCOUNTER 2021-04-20 06:02 | Day surgery (SDC) | payer OTHER ==
[2021-04-20 06:33] VITALS: BMI 23.1
[2021-04-20] MEDS ORDERED: DEXAMETHASONE SOD PHOSPHATE 4 MG/1 ML VIAL ONE (08:05)
[2021-04-20] MEDS ORDERED: KETOROLAC TROMETHAMINE 30 MG/1 ML VIAL ONE (08:05)
[2021-04-20] MEDS ORDERED: ONDANSETRON 4 MG/2 ML VIAL ONE (08:05)
[2021-04-20] MEDS ORDERED: PROPOFOL 20 ML ONE (08:25)
[2021-04-20 08:56] VITALS: TEMP 97.1
[2021-04-20 09:12] VITALS: BP 120/70; PULSE 92
== END 2021-04-20 09:12 | disposition home or self-care (01) ==
LOC: FECT 06:02
PROVIDERS: ATTEND Psychiatry & Neurology Psychiatry
PROC: GZB4ZZZ Other Electroconvulsive Therapy (ICD-10-PCS; principal; 2021-04-20 08:00)
DX: F32.9 Major depressive disorder, single episode, unspecified (principal)
CPT/HCPCS: 90870; 94760; C9803; U0003; U0005

== ENCOUNTER 2021-04-24 05:53 | Day surgery (SDC) | payer OTHER ==
[2021-04-24 06:59] VITALS: BMI 23.0
[2021-04-24] MEDS ORDERED: PROPOFOL 20 ML ONE (08:14)
[2021-04-24] MEDS ORDERED: SUCCINYLCHOLINE CHLORIDE 200 MG/10 ML SYRINGE ONE (08:14)
[2021-04-24 09:12] VITALS: TEMP 97.8
[2021-04-24 09:25] VITALS: BP 120/69; PULSE 92
== END 2021-04-24 09:33 | disposition home or self-care (01) ==
LOC: FECT 05:53
PROVIDERS: ATTEND Psychiatry & Neurology Psychiatry
PROC: GZB4ZZZ Other Electroconvulsive Therapy (ICD-10-PCS; principal; 2021-04-24 08:00)
DX: F32.9 Major depressive disorder, single episode, unspecified (principal)
CPT/HCPCS: 81025; 90870; 94760; C9803; U0003; U0005

== ENCOUNTER 2021-04-27 05:38 | Day surgery (SDC) | payer OTHER ==
[2021-04-26 11:58] VITALS: BMI 23.0
[2021-04-27] MEDS ORDERED: PROPOFOL 20 ML ONE (07:46)
[2021-04-27] MEDS ORDERED: SUCCINYLCHOLINE CHLORIDE 200 MG/10 ML SYRINGE ONE (07:47)
[2021-04-27 08:45] VITALS: TEMP 97.8
[2021-04-27 09:16] VITALS: BP 122/76; PULSE 88
== END 2021-04-27 09:18 | disposition home or self-care (01) ==
LOC: FECT 05:38
PROVIDERS: ATTEND Psychiatry & Neurology Psychiatry
PROC: GZB4ZZZ Other Electroconvulsive Therapy (ICD-10-PCS; principal; 2021-04-27 07:30)
DX: F32.9 Major depressive disorder, single episode, unspecified (principal)
CPT/HCPCS: 90870; 94760; C9803; U0003; U0005

== ENCOUNTER 2021-05-01 05:57 | Day surgery (SDC) | payer OTHER ==
[2021-04-25 12:38] VITALS: BMI 23.0
[2021-05-01 08:27] VITALS: TEMP 98
[2021-05-01 09:01] VITALS: BP 112/64; PULSE 91
== END 2021-05-01 09:02 | disposition home or self-care (01) ==
LOC: FECT 05:57
PROVIDERS: ATTEND Psychiatry & Neurology Psychiatry
PROC: GZB4ZZZ Other Electroconvulsive Therapy (ICD-10-PCS; principal; 2021-05-01 08:00)
DX: F32.9 Major depressive disorder, single episode, unspecified (principal)
CPT/HCPCS: 81025; 90870; 94760; C9803; U0003; U0005

== ENCOUNTER 2021-05-04 05:51 | Day surgery (SDC) | payer OTHER ==
[2021-05-01 17:42] VITALS: BMI 23.0
[2021-05-04 08:26] VITALS: BP 115/70; PULSE 88; TEMP 98
== END 2021-05-04 08:20 | disposition home or self-care (01) ==
LOC: FECT 05:51
PROVIDERS: ATTEND Psychiatry & Neurology Psychiatry
PROC: GZB4ZZZ Other Electroconvulsive Therapy (ICD-10-PCS; principal; 2021-05-04 07:30)
DX: F32.9 Major depressive disorder, single episode, unspecified (principal)
CPT/HCPCS: 90870; 94760; C9803; U0003; U0005

== ENCOUNTER 2021-05-08 05:43 | Day surgery (SDC) | payer OTHER ==
[2021-05-02 09:01] VITALS: BMI 23.0
[2021-05-08 08:23] VITALS: TEMP 98.4
[2021-05-08 08:37] VITALS: BP 130/75; PULSE 105
== END 2021-05-08 08:37 | disposition home or self-care (01) ==
LOC: FECT 05:43
PROVIDERS: ATTEND Psychiatry & Neurology Psychiatry
PROC: GZB4ZZZ Other Electroconvulsive Therapy (ICD-10-PCS; principal; 2021-05-08 07:30)
DX: F32.9 Major depressive disorder, single episode, unspecified (principal)
CPT/HCPCS: 81025; 90870; 94760; C9803; U0003; U0005

== ENCOUNTER 2021-05-11 05:50 | Day surgery (SDC) | payer OTHER ==
[2021-05-08 10:12] VITALS: BMI 23.0
[2021-05-11 07:19] VITALS: TEMP 98.6
[2021-05-11 08:17] VITALS: BP 123/68; PULSE 100
== END 2021-05-11 08:05 | disposition home or self-care (01) ==
LOC: FECT 05:50
PROVIDERS: ATTEND Psychiatry & Neurology Psychiatry
PROC: GZB4ZZZ Other Electroconvulsive Therapy (ICD-10-PCS; principal; 2021-05-11 07:30)
DX: F32.9 Major depressive disorder, single episode, unspecified (principal)
CPT/HCPCS: 90870; 94760